=== PATIENT | female | born 1945 ===

== ENCOUNTER 2017-03-23 11:27 | Emergency (ER) | payer MEDICARE, BC ==
[2017-03-23 11:28] VITALS: BMI 39.9
[2017-03-23 11:36] VITALS: TEMP 97.9
--- NOTE | 2017-03-23 11:43 | ED PDOC ---
Arrival/HPI - General Chief Complaint: Back Pain Time Seen by Provider: 03/23/17 11:34 Historian: Patient - History of Present Illness Narrative History of Present Illness (Text): 03/23/17 11:43 A 72 year old female presents to the emergency department complaining of right sided flank pain for 2 days. Patient reports radiating pain to suprapubic region , worse with movement. She states her pain feels similar to previous kidney stone symptoms. Patient notes nausea, mild dysuria and bilateral upper leg pain but denies any fever, vomiting, diarrhea, hematuria, chest pain, shortness of breath, weakness, numbness, tingling or any other complaints. PMD: Dr. Cedeno 03/23/17 16:48 Time/Duration: Other (2 days) Symptom Course: Unchanged Quality: Other Context: Home Past Medical History - Provider Review Nursing Documentation Reviewed: Yes - Infectious Disease Hx of Infectious Diseases: None - Tetanus Immunization Tetanus Immunization: Unknown - Cardiac Hx Cardiac Disorders: Yes Hx Hypertension: Yes - Pulmonary Hx Respiratory Disorders: No - Neurological Hx Neurological Disorder: No - HEENT Hx HEENT Disorder: Yes Other/Comment: glasses - Renal Hx Renal Disorder: Yes Hx Kidney Stones: Yes - Endocrine/Metabolic Hx Endocrine Disorders: Yes Hx Diabetes Mellitus Type 2: Yes Other/Comment: diabetes - Hematological/Oncological Hx Blood Disorders: No - Integumentary Hx Dermatological Disorder: No - Musculoskeletal/Rheumatological Hx Musculoskeletal Disorders: No - Gastrointestinal Hx Gastrointestinal Disorders: No - Genitourinary/Gynecological Hx Genitourinary Disorders: No - Psychiatric Hx Psychophysiologic Disorder: No Hx Substance Use: No - Past Surgical History Past Surgical History: No Previous - Surgical History Hx Appendectomy: Yes Hx Cardiac Catheterization: Yes Hx Cholecystectomy: Yes Hx Coronary Stent: Yes (X2) Hx Musculoskeletal Surgery: Yes (X2 BACK SURGERY 2006) - Anesthesia Hx Anesthesia: Yes Hx Anesthesia Reactions: No - Suicidal Assessment Feels Threatened In Home Enviroment: No Family/Social History - Physician Review Nursing Documentation Reviewed: Yes Family/Social History: No Known Family HX Smoking Status: Never Smoked Hx Alcohol Use: No Hx Substance Use: No Hx Substance Use Treatment: No Allergies/Home Meds Allergies/Adverse Reactions: Allergies ciprofloxacin [From Cipro] Allergy (Verified 03/23/17 11:32) RASH ofloxacin [From Floxin] Allergy (Verified 03/23/17 11:32) SHORTNESS OF BREATH Home Medications: Home Meds Medication Instructions Recorded Confirmed Losartan [Cozaar] 100 mg PO DAILY 07/05/14 03/23/17 metFORMIN [glucOPHAGE] 250 mg PO BID 07/05/14 03/23/17 Review of Systems - Physician Review All systems were reviewed & negative as marked: Yes - Review of Systems Constitutional: absent: Fevers Respiratory: absent: SOB Cardiovascular: absent: Chest Pain Gastrointestinal: Abdominal Pain (radiaitng pain to suprapubic region), Diarrhea , Nausea. absent: Vomiting Genitourinary Female: Dysuria. absent: Hematuria Musculoskeletal: Back Pain (Right sided flank pain), Other (bilateral upper leg pain) Physical Exam Vital Signs Reviewed: Yes Vital Signs Temp Pulse Resp BP Pulse Ox 03/23/17 13:47 88 18 168/89 H 98 03/23/17 11:34 97.9 F 99 H 19 180/116 H 100 Temperature: Afebrile Blood Pressure: Hypertensive Pulse: Tachycardic Respiratory Rate: Normal Appearance: Positive for: Well-Appearing, Non-Toxic, Comfortable Pain Distress: None Mental Status: Positive for: Alert and Oriented X 3 - Systems Exam Head: Present: Atraumatic, Normocephalic Pupils: Present: PERRL Extroacular Muscles: Present: EOMI Conjunctiva: Present: Normal Mouth: Present: Moist Mucous Membranes Pharnyx: No: ERYTHEMA, EXUDATE, TONSILS ENLARGED Neck: Present: Normal Range of Motion Respiratory/Chest: Present: Clear to Auscultation, Good Air Exchange. No: Respiratory Distress, Accessory Muscle Use Cardiovascular: Present: Regular Rate and Rhythm, Normal S1, S2. No: Murmurs Abdomen: Present: Normal Bowel Sounds. No: Tenderness, Distention, Peritoneal Signs Back: Present: CVA Tenderness (Right sided flank tenderness) Upper Extremity: Present: Normal Inspection. No: Cyanosis, Edema Lower Extremity: Present: Normal Inspection, NORMAL PULSES, Normal ROM. No: Edema, Tenderness (hip or lower extermity tenderness) Neurological: Present: GCS=15, CN II-XII Intact, Speech Normal, Motor Func Grossly Intact, Normal Sensory Function, Normal Cerebellar Funct, Gait Normal Skin: Present: Warm, Dry, Normal Color. No: Rashes Psychiatric: Present: Alert, Oriented x 3, Normal Insight, Normal Concentration Medical Decision Making ED Course and Treatment: 03/23/17 11:43 Impression: A 72 year old female with right sided flank pain radiating to suprapubic region , similar to previous kidney stone symptoms. Patient notes nausea, mild dysuria and bilateral upper leg pain. Plan: -- Abdomen and pelvis CT -- Labs -- Urine culture and Urinalysis -- Toradol -- Reassess and disposition Progress Notes: Report Date : 03/23/2017 13:31:07 PROCEDURE: CT Abdomen and Pelvis without intravenous contrast Dictator : Danish Holly MD IMPRESSION: No acute findings. No evidence of hydronephrosis or ureteral stone. 03/23/17 14:15 CT negative for stones. UA shows 2 rbc, so patient could have passed stone. UA negative for nitrates and leukocytes. Ucx sent. Patient made aware of results and instructed to follow-up with PMD. She reports that she feels better and wants to go home. 03/23/17 16:49 - Lab Interpretations Lab Results: 03/23/17 12:30 03/23/17 12:30 Lab Results 03/23/17 12:30: Sodium 143, Potassium 3.7, Chloride 103, Carbon Dioxide 29, Anion Gap 15, BUN 18, Creatinine 0.8, Est GFR ( Amer) > 60, Est GFR (Non- Af Amer) > 60, Random Glucose 211 H, Calcium 10.2, Total Bilirubin 0.3, AST 33, ALT 40, Alkaline Phosphatase 111, Total Protein 7.3, Albumin 4.2, Globulin 3.2, Albumin/Globulin Ratio 1.3 03/23/17 12:30: Urine Color Yellow, Urine Appearance Clear, Urine pH 7.0, Ur Specific [place] 1.010, Urine Protein Trace H, Urine Glucose (UA) >=1000, Urine Ketones Negative, Urine Blood Negative, Urine Nitrate Negative, Urine Bilirubin Negative, Urine Urobilinogen 0.2, Ur Leukocyte Esterase Negative, Urine RBC 0 - 2, Urine WBC 0 - 2, Ur Epithelial Cells 4 - 5, Urine Bacteria Many 03/23/17 12:30: WBC 9.3, RBC 4.46, Hgb 12.6, Hct 39.3, MCV 88.1, MCH 28.3, MCHC 32.1, RDW 14.7 H, Plt Count 348, MPV 10.2, Gran % 68.0, Lymph % (Auto) 23.1, [place] % (Auto) 5.1, Eos % (Auto) 3.6, Baso % (Auto) 0.2, Gran # 6.34, Lymph # 2.2 , [place] # 0.5, Eos # 0.3, Baso # 0.02 I have reviewed the lab results: Yes - RAD Interpretation Radiology Orders: 03/23/17 11:49 ABD & PELVIS W/O PO OR IV CONT [CT] Stat - Medication Orders Current Medication Orders: Discontinued Medications Ketorolac Tromethamine (Toradol) 30 mg IVP STAT STA Stop: 03/23/17 11:50 Last Admin: 03/23/17 12:34 Dose: 30 mg - Scribe Statement The provider has reviewed the documentation as recorded by the Albinibewelina Garcia Provider Scribe Attestation: All medical record entries made by the Scribe were at my direction and personally dictated by me. I have reviewed the chart and agree that the record accurately reflects my personal performance of the history, physical exam, medical decision making, and the department course for this patient. I have also personally directed, reviewed, and agree with the discharge instructions and disposition. Disposition/Present on Arrival - Present on Arrival Any Indicators Present on Arrival: No History of DVT/PE: No History of Uncontrolled Diabetes: No Urinary Catheter: No History of Decub. Ulcer: No History Surgical Site Infection Following: None - Disposition Have Diagnosis and Disposition been Completed?: Yes Diagnosis: Right flank pain Disposition: HOME/ ROUTINE Disposition Time: 14:15 Patient Plan: Discharge Condition: GOOD Discharge Instructions (ExitCare): Acute Low Back Pain (ED) Additional Instructions: Follow up with PMD within 2 days. Return to ED if condition worsens. Referrals: Jorge Cedeno MD [Primary Care Provider] - Follow up with primary Forms: [employer] (Slovenian)
[2017-03-23 12:42] LABS: BASO # 0.02 K/mm3 (0.0-2.0); BASO % 0.2 % (0.0-3.0); EOS # 0.3 (0.0-0.7); EOS % 3.6 % (1.5-5.0); GRAN # 6.34 (1.4-6.5); HEMATOCRIT 39.3 % (36.0-48.0); LYMPH # 2.2 (1.2-3.4); LYMPH % 23.1 % (22.0-35.0); MEAN CELL VOLUME 88.1 fl (80.0-105.0); MEAN CORPUSCULAR HEMOGLOBIN 28.3 pg (25.0-35.0); MEAN CORPUSCULAR HGB CONC 32.1 g/dl (31.0-37.0); MEAN PLATELET VOLUME 10.2 fl (7.0-11.0); MONO # 0.5 (0.1-0.6); MONO % 5.1 % (1.0-6.0); RED CELL DISTRIBUTION WIDTH 14.7 % (11.5-14.5); WHITE BLOOD COUNT 9.3 10^3/ul (4.5-11.0)
[2017-03-23 12:44] LABS: URINE BILIRUBIN NEGATIVE (NEGATIVE); URINE BLOOD NEGATIVE (NEGATIVE); URINE GLUCOSE (UA) >=1000 mg/dL (NEGATIVE); URINE KETONE NEGATIVE (NEGATIVE); URINE LEUKOCYTE ESTERASE NEGATIVE Leu/uL (NEGATIVE); URINE PROTEIN TRACE mg/dL (<30 mg/dL); URINE UROBILINOGEN 0.2 E.U./dL (<1 E.U./dL)
[2017-03-23 12:46] LABS: URINE APPEARANCE CLEAR (CLEAR); URINE COLOR YELLOW (YELLOW)
[2017-03-23 12:50] LABS: URINE RBC 0 - 2 /hpf (0-2); URINE WBC 0 - 2 /hpf (0-6)
[2017-03-23 12:51] LABS: URINE BACTERIA MANY (NEG)
[2017-03-23 12:54] LABS: ALB/GLOB RATIO 1.3 (1.1-1.8); ALKALINE PHOSPHATASE 111 U/L (38-133); ALT/SGPT 40 U/L (7-56); AST/SGOT 33 U/L (15-39); BILIRUBIN,TOTAL 0.3 mg/dL (0.2-1.3); BLOOD UREA NITROGEN 18 mg/dL (7-21); CALCIUM 10.2 mg/dL (8.4-10.5); CARBON DIOXIDE 29 mmol/L (21-33); CHLORIDE 103 mmol/L (98-107); GFR AFRICAN-AMERICAN > 60; GLUCOSE,RANDOM 211 mg/dL (70-110); POTASSIUM 3.7 mmol/L (3.6-5.0); SODIUM 143 mmol/L (132-148); TOTAL PROTEIN 7.3 g/dL (5.8-8.3)
--- NOTE | 2017-03-23 13:32 | CT ---
PROCEDURE: CT Abdomen and Pelvis without intravenous contrast HISTORY: R flank pain COMPARISON: 07/04/2014 TECHNIQUE: Without contrast.. Contrast Dose: Radiation dose: Total exam DLP = 1523 mGy-cm. This CT exam was performed using one or more of the following dose reduction techniques: Automated exposure control, adjustment of the mA and/or kV according to patient size, and/or use of iterative reconstruction technique. FINDINGS: LOWER THORAX: Coronary artery calcifications LIVER: Unremarkable. No gross lesion or ductal dilatation. GALLBLADDER AND BILE DUCTS: Gallbladder removed PANCREAS: Unremarkable. No gross lesion or ductal dilatation. SPLEEN: Unremarkable. ADRENALS: Unremarkable. No mass. KIDNEYS AND URETERS: Unremarkable. No hydronephrosis. No solid mass. VASCULATURE: Unremarkable. No aortic aneurysm. BOWEL: Unremarkable. No obstruction. No gross mural thickening. APPENDIX: Unremarkable. Normal appendix. PERITONEUM: Unremarkable. No free fluid. No free air. LYMPH NODES: Unremarkable. No enlarged lymph nodes. BLADDER: Unremarkable. REPRODUCTIVE: There is a fibroid extending posteriorly from the uterus measuring 2.4 cm BONES: Severe degenerative changes and postoperative changes are seen in the lumbar spine OTHER FINDINGS: None. IMPRESSION: No acute findings. No evidence of hydronephrosis or ureteral stone.
[2017-03-23 13:48] VITALS: BP 168/89; PULSE 88; RESP 18; O2SAT 98
== END 2017-03-23 14:29 | disposition home or self-care (01) ==
LOC: ED 11:27
DX: R10.9 Unspecified abdominal pain (principal)
CPT/HCPCS: 74176; 80053; 81001; 85025; 87086; 96374; 99284; J1885